=== PATIENT | female | born 1970 | race Caucasian/White ===

== ENCOUNTER 2017-02-02 08:47 | Emergency (ER) | payer OTHER ==
--- NOTE | 2017-02-02 09:13 | PHYS DOC ---
Adult General Chief Complaint Chief Complaint: fever, leg pain HPI HPI Patient is a 46-year-old female who presents ambulatory to the emergency department, sent from Dr. Sibley's office. Patient has pain and redness in her left lower leg, which she noticed 2 or 3 days ago but just noticed the redness yesterday. For 2-3 days, she has had chills and then developed fever to 101. She's had severe body aches, thought she had influenza. She feels somewhat short of air or like she can't get a deep enough breath. 2 days ago she had vomiting, she thought this was a viral syndrome. She then noticed that her lower left leg posteriorly is more painful and looked at it yesterday and saw that she has some red spots there. She denies any injury or bite to her knowledge. No known drug allergies. The patient is in good general health and takes no medications. 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 Nonsmoker, no hormone treatment, negative history for DVT Review of Systems Review of Systems Constitutional: Positive fever and chills [] Eyes: Denies change in visual acuity, redness, or eye pain [] HENT: Possibly some mild nasal congestion Respiratory: Denies cough Cardiovascular: No cardiac sounding chest pain, she had diffuse musculoskeletal aches and pains including chest pain GI: Vomiting 2 days ago which has resolved : Denies dysuria or hematuria [] Musculoskeletal: As in history of present illness for left leg pain Integument: As in history of present illness 4 red lesions on left leg Neurologic: Denies headache, focal weakness or sensory changes [] Physical Exam Physical Exam Constitutional: Well developed, well nourished, no acute distress, non-toxic appearance. Alert, mentating normally, ambulates to ED room without difficulty or dyspnea. Pulse ox on room air 98%. Afebrile. HENT: Normocephalic, atraumatic, bilateral external ears normal, nose normal. [ ] Eyes: conjunctiva normal, no discharge. [] Neck: Normal range of motion, no stridor. [] Cardiovascular:Heart rate regular rhythm, no murmur [] Lungs & Thorax: Bilateral breath sounds clear to auscultation [] Skin: Warm, dry, no erythema, no rash. [] Extremities: Right lower extremity unremarkable. Left lower extremity: The foot is not red, warm, or swollen. There is significant thickening, callus formation , and cracked skin of the left heel. Left lower leg posteriorly has some areas of blotchy erythema, warmth, and tenderness. There is red streaking extending proximally from these areas to about the knee level. The calf is soft and not indurated. The patient indicates an area of tenderness on the anterior medial mid thigh. There is no appreciable redness or warmth, no swelling, no palpable abnormality in this area. Neurologic: Alert and oriented X 3, normal motor function, normal sensory function, no focal deficits noted. [] EKG EKG [] Radiology/Procedures Radiology/Procedures [] Course & Med Decision Making Course & Med Decision Making Pertinent Labs and Imaging studies reviewed. (See chart for details) 46-year-old healthy female appears to clinically have cellulitis of her left calf area which appears to likely have started from severe cracked, callused skin of the heel. She has had 2+ days of fever, chills, body aches, vomiting, which is likely related to cellulitis with systemic involvement. She does not appear toxic however. She is a little tachycardic and we will give her a liter of normal saline. Clinically I believe her symptoms are due to cellulitis and there is no clinical evidence of DVT as well as positive clinical evidence for cellulitis. We will check a d-dimer however. D-dimer negative. White count normal. The patient had a stable ED course. She was given a dose of IV antibiotics and discharged on antibiotics. See instructions for plan. [] Dragon Disclaimer Dragon Disclaimer This chart was dictated in whole or in part using Voice Recognition software in a busy, high-work load, and often noisy Emergency Department environment. It may contain unintended and wholly unrecognized errors or omissions. Departure Departure: Impression: Primary Impression: Cellulitis of leg without foot, left Disposition: 01 HOME, SELF-CARE Condition: STABLE Patient Instructions: Cellulitis, [id number] Additional Instructions: For 2-3 days, stay off of your leg and keep it elevated, which will help keep it from swelling and help with the pain. Your fever should be going away in 48 hours or less, your pain should be improving in 48 hours or less. If not, check with your doctor. If you are getting worse, you might need to be admitted for IV antibiotics, return to ER if so. Your blood tests showed anemia. Please follow-up with your primary care doctor when you're feeling better for his advice on this. As we discussed, I believe the thick, cracked callus on your left heel is probably where the infection started. Discuss with your primary care doctor how to treat this. He may want to refer you to a assembler billiard table. I recommend using Am- Lactin lotion or similar generic on both feet every day after your shower. Scripts Sulfamethoxazole/Trimethoprim (BACTRIM DS TABLET) 1 Each Tablet 1 TAB PO BID for cellulitis, #20 TAB Prov: JAIRON BAZZI MD 02/02/17 JAIRON BAZZI MD Feb 02, 2017 09:13
[2017-02-02] MEDS ORDERED: IV NORMAL SALINE 1,000ML 1,000 ML IV ONE (09:15)
--- NOTE | 2017-02-02 09:20 | RAD ---
Indication shortness of breath. Fever. PA and lateral views of the chest were obtained. No prior imaging of the chest is available. The heart and pulmonary vessels appear normal. The mediastinum has a normal appearance. The lungs are clear. There is no pleural fluid or pneumothorax and the bony structures appear grossly intact. IMPRESSION: No acute or focal process is seen in the chest
[2017-02-02 09:24] LABS: BASO % 1 % (0-3); EOS # 0.1 x10^3/uL (0.0-0.7); EOS % 1 % (0-3); HEMATOCRIT 29.9 % (36.0-47.0); HEMOGLOBIN 9.4 g/dL (12.0-15.5); LYMPH # 1.5 x10^3/uL (1.0-4.8); LYMPH % 27 % (24-48); MEAN CORPUSCULAR HEMOGLOBIN 23 pg (25-35); MEAN CORPUSCULAR HGB CONC 32 g/dL (31-37); MEAN CORPUSCULAR VOLUME 72 fL (79-100); MONO # 0.6 x10^3/uL (0.0-1.1); MONO % 10 % (0-9); NEUT # 3.3 x10^3uL (1.8-7.7); NEUT % 60 % (31-73); PLATELET COUNT 430 x10^3/uL (140-400); RED BLOOD COUNT 4.14 x10^6/uL (3.50-5.40); WHITE BLOOD COUNT 5.5 x10^3/uL (4.0-11.0)
[2017-02-02 09:37] LABS: ALBUMIN 3.3 g/dL (3.4-5.0); ALBUMIN/GLOBULIN RATIO 0.9 (1.0-1.7); CALCIUM 8.4 mg/dL (8.5-10.1); CREATININE 0.8 mg/dL (0.6-1.0); GFR 77.6; POTASSIUM 3.5 mmol/L (3.5-5.1); TOTAL BILIRUBIN 0.3 mg/dL (0.2-1.0)
[2017-02-02] MEDS ORDERED: SULFAMETHOXAZOLE/TRIMETHOPRIM 20 ML in IV DEXTROSE 5% 500 ML IV ONE (10:30)
[2017-02-02 10:33] LABS: ANISOCYTOSIS SLIGHT; HYPOCHROMIA MOD; MICROCYTOSIS SLIGHT; PLT ESTIMATE INCREASED (ADEQUATE); POLYCHROMASIA PRESENT
[2017-02-02 10:34] LABS: OVALOCYTES PRESENT
[2017-02-02] MEDS ORDERED: SULF1TAB24 PO (10:41)
[2017-02-02 11:52] VITALS: BP 143/82
== END 2017-02-02 12:10 | disposition home or self-care (01) ==
LOC: ER 08:50
DX: L03.116 Cellulitis of left lower limb (principal); R50.9 Fever, unspecified
CPT/HCPCS: 36415; 71020; 80053; 83605; 85008; 85027; 85379; 87040; 96361; 96365; 96366; 99285; J3490; J7030